=== PATIENT | male | born 1995 ===

== ENCOUNTER 2018-05-20 10:46 | Emergency (ER) | payer OTHER ==
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
[2018-05-20 12:38] VITALS: BP 130/76
== END 2018-05-20 12:15 | disposition home or self-care (01) ==
LOC: ED 10:46
DX: S43.402A Unspecified sprain of left shoulder joint, initial encounter (principal); V49.49XA Driver injured in collision with other motor vehicles in traffic accident, initial encounter; Y92.9 Unspecified place or not applicable
CPT/HCPCS: 99281

== ENCOUNTER 2019-04-02 09:48 | Emergency (ER) | payer OTHER ==
[2019-04-02 10:02] VITALS: BP 114/73
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
== END 2019-04-02 10:42 | disposition home or self-care (01) ==
LOC: UCEAST 09:48
DX: S46.912A Strain of unspecified muscle, fascia and tendon at shoulder and upper arm level, left arm, initial encounter (principal); F31.9 Bipolar disorder, unspecified; Z79.899 Other long term (current) drug therapy; V49.9XXA Car occupant (driver) (passenger) injured in unspecified traffic accident, initial encounter; Y92.9 Unspecified place or not applicable
CPT/HCPCS: 99211; G0463